=== PATIENT | male | born 1945 | race Caucasian/White ===

== ENCOUNTER 2017-05-18 08:19 | Day surgery (SDC) | payer BC ==
[2017-05-14 18:10] LABS: BASOPHILS 0.6 %; BASOPHILS ABSOLUTE 0.04 10/3/uL (0.0-0.16); EOSINOPHILS 6.3 %; HEMATOCRIT 44.2 % (40.0-51.0); HEMOGLOBIN 14.8 g/dL (13.6-17.8); IMMATURE GRANULOCYTES 0.2 %; IMMATURE GRANULOCYTES ABSOLUTE 0.01 10/3/uL (0.0-0.11); LYMPHOCYTES 31.3 %; MANUAL DIFF NO %; MEAN CORPUS HGB CONC 33.5 g/dL (32.0-36.0); MEAN CORPUSCULAR HEMOGLOB 30.6 pg (26.0-34.0); MEAN CORPUSCULAR VOLUME 91.5 fL (80-100); MONOCYTES 4.9 %; MONOCYTES ABSOLUTE 0.31 10/3/uL (0.21-1.20); NEUTROPHILS 56.7 %; NEUTROPHILS ABSOLUTE 3.62 10/3/uL (2.02-8.40); PLATELET COUNT 168 10/3/uL (150-400); RBC DISTRIBUTION WIDTH 13.7 % (12.0-16.0); RED CELL COUNT 4.83 10/6/uL (4.7-6.1); WHITE BLOOD CELLS 6.4 10/3/uL (4.5-10.5)
[2017-05-14 18:23] LABS: ALBUMIN 4.4 G/DL (3.5-5.0); CALCIUM, SERUM 9.1 MG/DL (8.5-10.4); CHLORIDE, SERUM 106 MMOL/L (96-112); CO2 (CARBON DIOXIDE) 29 MMOL/L (24-34); CREATININE 1.24 MG/DL (0.70-1.30); GFR AFRICAN AMERICAN 67 ML/MIN (>=60); GFR NON AFRICAN AMERICAN 58 ML/MIN (>=60); GLUCOSE, SERUM 89 MG/DL (60-99); SGOT(AST) 20 U/L (5-40); SGPT(ALT) 35 U/L (5-65); SODIUM, SERUM 142 MMOL/L (135-148); TOTAL BILIRUBIN 0.8 MG/DL (0-1.2); TOTAL PROTEIN 6.9 G/DL (6.0-8.5)
[2017-05-14 18:24] LABS: A/G RATIO 1.8 (0.7-1.9); ALKALINE PHOSPHATASE 43 U/L (45-117); BUN (BLOOD UREA NITROGEN) 19 MG/DL (6-23); GLOBULIN 2.5 G/DL (2.5-4.1); POTASSIUM, SERUM 4.7 MMOL/L (3.5-5.3)
--- NOTE | ~2017-05-18 | PREOPHP ---
PreOp History and Physical [id number] [place]. [address] NAME: CHELSEY HUITRON : 45 STATUS : PRE [facility]#: [id number] AGE: 71 ADM/REG DATE : MR#: [id number] REPORT SERV DATE: 05/17/17 DICTATED BY: BENJAMIN KUMARI III DATE: 05/06/17 REPORT STATUS : Draft TRANSCRIBED BY: MODL DATE: 05/06/17 HISTORY OF PRESENT ILLNESS: This is a 71-year-old male, who comes to the operating room for laparoscopic cholecystectomy, possible laparotomy, for symptomatic acalculous cholecystitis. The patient complains of one-year history of intermittent episodes of right upper quadrant abdominal pain. This pain has been associated with nausea. Recently, the symptoms have become worse. The patient has evidence for acalculous cholecystitis. He comes to the operating room now for laparoscopic cholecystectomy, possible laparotomy. MEDICATIONS: Loratadine, Naprosyn, pantoprazole, probiotic, Imitrex, , Zofran, metoprolol, ofloxacin, Zofran, propranolol, sertraline, sumatriptan. PAST MEDICAL HISTORY: Includes hyperlipidemia, depression, migraine headaches, gastroesophageal reflux disease, history of sigmoid colectomy, and prostatic hypertrophy. ALLERGIES: ASPIRIN, CODEINE, PENICILLIN, AND SULFA. PAST SURGICAL HISTORY: Includes laparotomy with resection of proximal colon, sigmoid colectomy, resection of terminal ilium. FAMILY HISTORY: Positive for heart disease and cancer. SOCIAL HISTORY: No history of tobacco use. The patient has no history of alcohol use. REVIEW OF SYSTEMS: The patient complains of fatigue, weight gain, night sweats, and vomiting and joint pain and back pain. PHYSICAL EXAMINATION: GENERAL: This is an obese male, in no acute distress. He is alert and oriented x3. VITAL SIGNS: Blood pressure 108/69, pulse , temperature 97.4. HEENT: Unremarkable. Cranial nerves II through XII are normal. LUNGS: Clear. CARDIAC: Normal. ABDOMEN: Soft with mild right upper quadrant tenderness. The patient has a lower midline incision. EXTREMITIES: Normal. LABORATORY DATA: HIDA scan shows an abnormal ejection fraction of 7%. Gallbladder ultrasound shows hepatomegaly. ASSESSMENT: A 71-year-old male with: 1. Symptomatic acalculous cholecystitis. 2. Obesity. 3. Hyperlipidemia. 4. History of migraine headaches. 5. Sigmoid colectomy. PreOp History and Physical [address] [address] NAME: CHELSEY HUITRON : 45 STATUS : PRE [facility]#: [id number] AGE: 71 ADM/REG DATE : MR#: [id number] REPORT SERV DATE: 05/17/17 DICTATED BY: BENJAMIN KUMARI III DATE: 05/06/17 REPORT STATUS : Draft TRANSCRIBED BY: MODL DATE: 05/06/17 6. Depression. PLAN: The patient comes to the operating room now for laparoscopic cholecystectomy, possible laparotomy. This procedure, the risks, benefits, and alternatives, including but not limited to the risk for bleeding, infection, common bile duct injury, bile leak, retained common bile duct stone, enterotomy, injury to any abdominal structure, the definite possible need for laparotomy, possible persistence of his symptoms unrelieved by surgery, possibility of postoperative diarrhea or incisional hernia, and unforeseen complications, including deep venous thrombosis, pulmonary embolus, myocardial infarction, stroke, pneumonia and , have been fully and completely explained to the patient at length prior to surgery. The fact that this is a major operation with risk for major morbidity, mortality, and no guarantee for relief of his symptoms were explained. The expected length of recovery with both open and laparoscopic procedures has been explained. The fact that he is at increased risk for enterotomy and possible need for laparotomy and surgical complications due to his previous abdominal surgery has been explained. The patient's questions have been answered. He clearly understands the risks and agrees to surgery as planned. CHANTAL/WILMA Benjamin Kumari III, M.D. / [id number]
--- NOTE | ~2017-05-18 | OP ---
Record Of Operation [facility] [address] [place]. [address] NAME: CHELSEY HUITRON : 45 STATUS : REG [facility]#: [id number] AGE: 71 ADM/REG DATE : 05/18/17 MR#: [id number] REPORT SERV DATE: 05/18/17 DICTATED BY: BENJAMIN KUMARI III DATE: 05/18/17 REPORT STATUS : Draft TRANSCRIBED BY: MODL DATE: 05/18/17 DATE OF PROCEDURE: 05/18/2017 PREOPERATIVE DIAGNOSIS: Symptomatic acalculous cholecystitis. POSTOPERATIVE DIAGNOSIS: Symptomatic acalculous cholecystitis. PROCEDURE: Laparoscopic cholecystectomy. ANESTHESIA: General with intubation. COMPLICATIONS: None. ESTIMATED BLOOD LOSS: Less than 30 mL. SPECIMENS: Gallbladder. DRAINS: None. LAP AND SPONGE COUNT: Correct x3. BRIEF HISTORY: This 71-year-old male presented with evidence for symptomatic acalculous cholecystitis. It was felt that laparoscopic cholecystectomy, possible laparotomy, was indicated. This procedure, the risks, benefits, and alternatives, including but not limited to the risk for bleeding, infection, common bile duct injury, bile leak, retained common bile stone, enterotomy, injury to any abdominal structure, the definite possible need for laparotomy, possible persistence of his symptoms unrelieved by surgery, possibility of postoperative diarrhea or incisional hernia, and unforeseen complications including deep venous thrombosis, pulmonary embolus, myocardial infarction, stroke, pneumonia, and were fully and incompletely explained to the patient prior to the surgery. The fact that this was a major operation with risk for major morbidity and mortality, and no guarantee for relief of his symptoms was explained to them. The expected length of recovery with both open laparoscopic procedures was explained. The patient had questions, which were answered. He understood the risks and agreed to the surgery as planned. FINDINGS: The patient's gallbladder estrada were thickened, inflamed, and there were adhesions between the gallbladder and omentum consistent with cholecystitis. The liver and the remainder of the upper abdomen were otherwise unremarkable as far as we could determine through the laparoscope. DESCRIPTION OF PROCEDURE: After being appropriately identified and after discussing the risks of surgery with the patient and his family in the preoperative area, the patient was taken to the operating room and placed in the supine position on the operating room table. General anesthesia was administered. He was intubated without difficulty. The abdomen was prepped and draped sterilely in the usual fashion. After an appropriate "time-out" per [facility] standards, a small transverse incision was made below the umbilicus. The skin and Record Of Operation [id number] [place]. [address] NAME: CHELSEY HUITRON : 45 STATUS : REG [facility] PAT#: [id number] AGE: 71 ADM/REG DATE : 05/18/17 MR#: [id number] REPORT SERV DATE: 05/18/17 DICTATED BY: BENJAMIN KUMARI III DATE: 05/18/17 REPORT STATUS : Draft TRANSCRIBED BY: MODL DATE: 05/18/17 fascia on either side were elevated with towel clips. A Veress needle was placed through the incision into the peritoneal cavity. Correct position of the needle in the peritoneal cavity was confirmed by the hanging drop test. The abdominal cavity was then insufflated to about 13 mmHg with carbon dioxide. Correct position of air in the peritoneal cavity was confirmed by palpation. The Veress needle was removed and replaced with 10-mm trocar. The laparoscope was placed through this. The patient was placed in the reverse Trendelenburg position and to his left. A second 10-mm trocar was placed just below the xiphoid process, to the right of the falciform ligament, under direct vision with the laparoscope. Two 5-mm trocars were placed along the right subcostal margin, one in the midaxillary line, the other in the midclavicular line. These were also placed under direct vision with the laparoscope. The upper abdomen was inspected. The gallbladder appeared to be chronically diseased. The gallbladder estrada were thickened and inflamed consistent chronic cholecystitis. The liver and remainder of the upper abdomen were otherwise unremarkable as far as we could determine through the laparoscope. The appropriate instruments were placed through the trocars. The gallbladder was grasped and the infundibulum of the gallbladder was retracted laterally and inferiorly so as to expose the triangle of Calot. Using careful sharp and blunt dissection, the cystic duct was carefully and meticulously defined proximally and distally. The cystic duct was fairly long. The junction of the cystic duct with the common bile duct was appreciated, but not skeletonized. The cystic artery was similarly defined proximally and distally. The fibrous and fatty tissue between these structures was divided so as to clearly identify the critical angle. Once these structures were clearly defined, the cystic duct was clipped using two clips on the common bile duct side and one on the gallbladder side, all placed as close to the gallbladder as possible, taking care not encroach upon or injure the common bile duct in any way. The cystic duct was then divided between these clips as close to the gallbladder as possible. We elected not to perform a cholangiogram because there was no preoperative or intraoperative evidence for biliary dilatation and because the patient's preoperative liver enzymes were normal and because his biliary anatomy was clearly defined. Again, the structure was not divided or clipped until the critical angle and triangle of Calot had been clearly identified. The cystic artery was then similarly clipped and divided as close to the gallbladder as possible. Using the spatula and the cautery, the gallbladder was carefully dissected from the liver bed. This went very well. Before the gallbladder was completely removed, the gallbladder bed and portal areas were irrigated numerous times with saline. The saline was aspirated dry. This process was repeated several times until hemostasis was meticulously and thoroughly assured in all areas. It was also assured that the clips in the portal areas were in good position and there was no extravasation of bile from any accessory bile duct. Once this was assured, the gallbladder was completely dissected away from the liver and placed in the Endopouch. The liver bed was elevated, irrigated, and inspected for meticulous and thorough hemostasis and for absence of any biliary extravasation and to be certain that the clips were in good position. Once this was assured, the gallbladder and Endopouch were brought out through the infraumbilical incision and placed in the laparoscope through the subxiphoid port. The fascia of the infraumbilical incision was closed with 0 Vicryl suture. The lateral two trocars were removed. These two lower trocar sites were inspected on the underside for hemostasis with the laparoscope. Once this was assured, the subxiphoid trocar was removed under direct vision with the laparoscope to assure hemostasis in this incision. The air was removed from the peritoneal cavity through this incision. The skin incisions were inspected for hemostasis, they were closed with running subcuticular 4-0 Monocryl stitches. They were Record Of [address] [place]. [address] NAME: CHELSEY HUITRON : 45 STATUS : REG [facility] PAT#: [id number] AGE: 71 ADM/REG DATE : 05/18/17 MR#: [id number] REPORT SERV DATE: 05/18/17 DICTATED BY: BENJAMIN KUMARI III DATE: 05/18/17 REPORT STATUS : Draft TRANSCRIBED BY: WILMA DATE: 05/18/17 injected with one-half percent Marcaine. Dressings were applied. Anesthesia was reversed and the patient was taken to the recovery room in stable condition. The patient tolerated the procedure well. His family was informed of the results of surgery. The patient was discharged later when he was stable, comfortable and tolerating liquids and able to void and ambulate. His family was advised that he should remain on a liquid diet today and advance this as tolerated to a regular diet tomorrow. He should keep wounds clean and dry for 48 hours and that he should not drive for 3-4 days after surgery or while using narcotics or Phenergan. They were advised that he should resume his usual medications. He was given a prescription for a narcotic and Phenergan, which he was advised to not take while driving. CHANTAL/WILMA Benjamin Kumari III, M.D. / [id number] CC: Marine Mendez III, M.D.
[~2017-05-18 08:19] MED LIST: BIOFREEZE WITH120 GM TOP; CIP5 PO; CLARIT10 PO; FLAG500TAB PO; FLONASE NAS; IMITREX100 MG PO; LEVAQUIN5T PO; LOP25 PO; MIRALAXPKT PO; NAP500 PO; NASAL SPRAY; OMEGA 3 XL PO; PERCOCET1 TA2 PO; PROBIOTIC OTC PO; PROTONIX PO; REFRESH OPH; ZOFRAN4 PO; ZOFRAN8 PO; ZOL100 PO
[2017-05-18 16:10] LABS: HEMATOCRIT 43.6 % (40.0-51.0); HEMOGLOBIN 15.1 g/dL (13.6-17.8)
== END 2017-05-18 18:34 | disposition home or self-care (01) ==
LOC: SDC 08:19
PROVIDERS: Surgery
PROC: 0FT44ZZ Resection of Gallbladder, Percutaneous Endoscopic Approach (ICD-10-PCS; principal; 2017-05-18 10:00)
DX: K81.1 Chronic cholecystitis (principal); E78.5 Hyperlipidemia, unspecified; F32.9 Major depressive disorder, single episode, unspecified; G43.909 Migraine, unspecified, not intractable, without status migrainosus; K21.9 Gastro-esophageal reflux disease without esophagitis; N40.0 Benign prostatic hyperplasia without lower urinary tract symptoms; E66.9 Obesity, unspecified; Z79.899 Other long term (current) drug therapy; Z90.49 Acquired absence of other specified parts of digestive tract; Z88.6 Allergy status to analgesic agent; Z88.5 Allergy status to narcotic agent; Z88.0 Allergy status to penicillin; Z88.2 Allergy status to sulfonamides; Z82.49 Family history of ischemic heart disease and other diseases of the circulatory system; Z98.890 Other specified postprocedural states; Z68.28 Body mass index [BMI] 28.0-28.9, adult; Z98.41 Cataract extraction status, right eye; Z98.42 Cataract extraction status, left eye
CPT/HCPCS: 36415; 71020-PO; 80053; 85014; 85018; 85025; 88304; 93005; J0690; J1630; J2405; J2710; J3010